=== PATIENT | female | born 1980 | race Caucasian/White ===

== ENCOUNTER 2017-08-06 01:28 | Emergency (ER) | payer OTHER ==
[2017-08-06 01:39] VITALS: BMI 20.5
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
[2017-08-06 03:25] LABS: BASOPHILS % (AUTO) 0.3 % (0.2-1.0); EOSINOPHILS # (AUTO) 0.1 x10^3/uL (0.0-0.2); EOSINOPHILS % (AUTO) 0.6 % (0.9-2.9); HEMATOCRIT 35.8 % (36.0-47.0); HEMOGLOBIN 12.3 g/dL (12.0-16.0); LYMPHOCYTES # (AUTO) 0.9 X10^3/uL (1.3-2.9); LYMPHOCYTES % (AUTO) 8.4 % (21.0-51.0); MEAN CORPUSCULAR HEMOGLOBIN 30.8 pg (27.0-34.0); MEAN CORPUSCULAR HGB CONC 34.4 g/dL (33.0-35.0); MEAN CORPUSCULAR VOLUME 89.4 fL (80.0-100.0); MEAN PLATELET VOLUME 7.2 fL (7.4-11.0); MONOCYTES # (AUTO) 0.6 x10^3/uL (0.3-0.8); MONOCYTES % (AUTO) 5.4 % (0.0-13.0); NEUTROPHILS # (AUTO) 9.4 x10^3/uL (2.2-4.8); NEUTROPHILS % (AUTO) 85.3 % (42.0-75.0); PLATELET COUNT 215 X10^3/uL (150.0-450.0); RED CELL DISTRIBUTION WIDTH 11.9 % (11.6-16.5)
[2017-08-06 03:40] LABS: ALANINE AMINOTRANSFERASE 24 Units/L (12-78); ALBUMIN 3.2 g/dL (3.4-5.0); ALKALINE PHOSPHATASE 69 Units/L (46-116); ASPARTATE AMINO TRANSFERASE 25 Units/L (15-37); BLOOD UREA NITROGEN 14 mg/dL (7-18); CALCIUM 8.2 mg/dL (8.5-10.1); CARBON DIOXIDE 30.3 mmol/L (21-32); CHLORIDE 106 mmol/L (98-107); COR CA(FOR HYPOALB) 8.8 mg/dL (8.5-10.1); SODIUM 142 mmol/L (136-145); TOTAL PROTEIN 6.3 g/dL (6.4-8.2); eGFR BLACK RACES > 60 (>60); eGFR NON BLACK RACES > 60 (>60)
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
[2017-08-06 05:06] VITALS: BP 112/58
[2017-08-06] MEDS ORDERED: PERCOCET TAB 5/325 MG PO ONE (05:15)
[2017-08-06] MEDS ORDERED: PERCOCET TAB 5/325 MG ONE (05:18)
== END 2017-08-06 07:36 | disposition home or self-care (01) ==
LOC: ER 01:28
DX: Z04.3 Encounter for examination and observation following other accident (principal); S22.080A Wedge compression fracture of T11-T12 vertebra, initial encounter for closed fracture; S22.030A Wedge compression fracture of third thoracic vertebra, initial encounter for closed fracture; V49.9XXA Car occupant (driver) (passenger) injured in unspecified traffic accident, initial encounter
CPT/HCPCS: 36415; 70450; 71010; 72125; 72128; 72131; 73030; 74176; 80053; 85025; 99283

== ENCOUNTER 2018-01-04 18:43 | Emergency (ER) | payer OTHER ==
[2018-01-04 18:51] VITALS: BP 98/64; BMI 19.8
[2018-01-04] MEDS ORDERED: ZOFRAN INJ 4 MG VIAL IVP ONE (19:11)
--- NOTE | 2018-01-04 19:12 | DR.GENAD ---
HPI - PCP Primary Care Physician: mouna mccallum - Complaint/Symptoms Chief Complaint Doctors Comments: Patient presents with complaint of left flank pain onset this moring. Has a history of stones. Pain level is 8/10, sharp. Denies fever. She denies allergies. Chief Complaint:: pt c/o lt flank pain and nausea and vomiting pt states" i had a kidney stone last year i just need to lay down i'm hurting" - Source History Provided: Patient - Mode of Arrival Mode of Arrival: Ambulatory - Timing Onset of Chief Complaint: 01/04/18 PMH - PMH Past Medical History: Yes Past Medical History: Kidney Stones Past Surgical History: Yes Surgical History: , Hysterectomy - Family History History of Family Medical Conditions: Yes Family Medical History: Diabetes Mellitus - Social History Does patient currently use any type of tobacco product: No Have you used tobacco products in the last 12 months: No Type of Tobacco Use: None Do you use any recreational Drugs:: No Lives With: Family Lives Where: Home - infectious screening In the last 2 months have you had wt loss of >10#?: NO Have you had fever, night sweats or hemotysis?: No Have you traveled outside the country in the last 6 months?: No Isolation: Standard ROS - Review of Systems Eyes: No Symptoms Reported ENTM: No Symptoms Reported Respiratoy: No Symptoms Reported Cardiovascular: No Symptoms Reported Gastrointestinal/Abdominal: No Symptoms Reported Genitourinary: No Symptoms Reported Neurological: No Symptoms Reported Musculoskeletal: No Symptoms Reported Integumentary: No Symptoms Reported Hematologic/Lymphatic: No Symptoms Reported Endocrine: No Symptoms Reported Psychiatric: No Symptoms Reported All Other Systems: Reviewed and Negative PE - Vital Signs Vitals: Temperature 97.4 F Pulse Rate 104 Respiratory Rate 18 Blood Pressure [Left Arm] 112/58 Blood Pressure 98/64 O2 Sat by Pulse Oximetry 100 - General General Appearance: Alert, In No Apparent Distress - Head Head Exam: Normal Inspection, Atraumatic - Eyes Eye exam: Normal Appearance, PERRL, EOMI - ENT ENT Exam: Normal Exam External Ear Exam: Normal External Inspection TM/Canal Exam: Bilateral Normal Nose Exam: Normal Nose Exam Mouth Exam: Normal Inspection Throat Exam: Normal Inspection - Neck Neck Exam: Normal Inspection, Full ROM - Chest Chest Inspection: Normal Inspection - Respiratory Respiratory Exam: Normal Lung Sounds Bilat, Accessory Muscle Use Respiratory Exam: Bilateral Clear to Auscultation - Cardiovascular Cardiovascular Exam: Regular Rate, Normal Rhythm - Abdominal Exam Abdominal Exam: Normal Inspection Abdominal Tenderness: Suprapubic - Extremities Extremities Exam: Normal Inspection, Full ROM - Back Back Exam: Normal Inspection, Full ROM - Neurologic Neurological Exam: Alert, Oriented X3, CN II-XII Intact - Psychiatric Psychiatric Exam: Normal Affect - Skin Skin Exam: Warm, Dry, Intact Course - Reevaluation 1st: Improved ROR - Labs Reviewed Laboratory Results Reviewed?: Yes (Urine: +1 leuk; 20-30 RBCs, 5-10WBC) Laboratory: Specimen Type Clean catch urine 01/04/18 20:20 Urine Color Yellow (YELLOW) 01/04/18 20:20 Urine Appearance Cloudy (CLEAR) 01/04/18 20:20 Urine pH 5.0 (5.0 - 8.0) 01/04/18 20:20 Ur Specific [place] 1.025 (1.000-1.030) 01/04/18 20:20 Urine Protein 2+ (NEGATIVE) 01/04/18 20:20 Urine Glucose (UA) Negative (NEGATIVE) 01/04/18 20:20 Urine Ketones 1+ (NEGATIVE) 01/04/18 20:20 Urine Occult Blood 5+ (NEGATIVE) 01/04/18 20:20 Urine Nitrite Negative (NEGATIVE) 01/04/18 20:20 Urine Bilirubin 1+ (NEGATIVE) 01/04/18 20:20 Urine Urobilinogen 1+ (NORMAL) 01/04/18 20:20 Ur Leukocyte Esterase 1+ (NEGATIVE) 01/04/18 20:20 Urine RBC 20-30 /HPF (NONE SEEN) 01/04/18 20:20 Urine WBC 5-10 /HPF (NONE SEEN) 01/04/18 20:20 Ur Squamous Epith Cells Rare /HPF (NEGATIVE) 01/04/18 20:20 Amorphous Sediment 1+ /HPF (NEGATIVE) 01/04/18 20:20 Urine Bacteria 2+ /HPF (NEGATIVE) 01/04/18 20:20 Urine Mucus Few /HPF (NEGATIVE) 01/04/18 20:20 Ur Culture Indicated? Yes/culture set up 01/04/18 20:20 - XRAY XRAY Interpreted by: Radiologist (CT ABd/Pel w/o: There is left sided hydroureteronephrosis proximal to a 5mm calculus located at or near the left ureterovesical junction. No left renal calculi are identified. No intraperitoneal or retroperitoneal lymphadenopathy of significance is identified. There are no findings suggestive of diverticulitis or colitis. The appendix is normal. Examinatin of the pelvic demonstrated no evidence for pelvic masses, pelvic fluid, or pelvic lymphadenopathy. No intrisic bladder abnormality is identified. No lytic or blastic skeletal lesions are identified. Impression: 5mm obstructing distal left ureteral calculus located at or near the left ureterovesical junction.) - Diagnosis Discharge Problem: Left sided hydroureteronephrosis, UTI (urinary tract infection) - Discharge Plan Condition: Stable - Follow ups/Referrals Follow ups/Referrals: AWA MCCALLUM [Primary Care Provider] - 3 days - Instructions
[2018-01-04] MEDS ORDERED: NS 1000 ML 1,000 ML ONE (19:16)
[2018-01-04] MEDS ORDERED: TORADOL 30 MG VIAL IVP ONE (19:16)
[2018-01-04] MEDS ORDERED: ZOFRAN INJ 4 MG VIAL ONE (19:16)
[2018-01-04] MEDS ORDERED: TORADOL 30 MG VIAL ONE (19:18)
[2018-01-04] MEDS ORDERED: NS 1000 ML 1,000 ML IV SCH (20:00)
[2018-01-04 20:45] LABS: BILIRUBIN,URINE 1+ (NEGATIVE); BLOOD/HEMOGLOBIN,URINE 5+ (NEGATIVE); GLUCOSE, URINE NEGATIVE (NEGATIVE); KETONES,URINE 1+ (NEGATIVE); LEUKOCYTE ESTERASE ,URINE 1+ (NEGATIVE); NITRITES,URINE NEGATIVE (NEGATIVE); PROTEIN,URINE 2+ (NEGATIVE); UROBILINOGEN,URINE 1+ (NORMAL)
[2018-01-04 20:53] LABS: APPEARANCE,URINE CLOUDY (CLEAR); BACTERIA,URINE 2+ /HPF (NEGATIVE); COLOR,URINE YELLOW (YELLOW); RBC,URINE 20-30 /HPF (NONE SEEN); SQUAMOUS EPITHELIAL CELL,UR RARE /HPF (NEGATIVE)
[2018-01-04 20:54] LABS: AMORPHOUS SEDIMENT,UR 1+ /HPF (NEGATIVE); MUCUS,URINE FEW /HPF (NEGATIVE)
[2018-01-04] MEDS ORDERED: ANCEF 1 GM IV PREMIX* 1 GM/50 ML BAG IV ONE (21:14)
--- NOTE | 2018-01-04 21:50 | CT ---
HISTORY: Left flank pain, hematuria Study: CT abdomen pelvis without contrast Comparison: 08/06/2017 Technique: Axial noncontrast images with coronal and sagittal reformats. Dose reduction procedures we re used with mA/kv adjusted for body size. Findings: The lung bases are clear. The liver, spleen, adrenal glands, and pancreas are within normal limits to the limitations of an unenhanced examination. No opaque stones are visible within the gallbladder. T he right kidney is unobstructed and without stones. No right ureteral calculus is identified. There i s left-sided hydroureteronephrosis proximal to a 5 mm calculus located at or near the left ureteroves ical junction. No left renal calculi are identified. No intraperitoneal or retroperitoneal lymphadeno [place] of significance is identified. There are no findings suggestive of diverticulitis or colitis. T he appendix is normal. Examination of the pelvis demonstrated no evidence for pelvic masses, pelvic f luid, or pelvic lymphadenopathy. No intrinsic bladder abnormality is identified. No lytic or blastic skeletal lesions are identified. IMPRESSION: 5 mm obstructing distal left ureteral calculus located at or near the left ureterovesical junction Reported By:
[2018-01-04] MEDS ORDERED: ANCEF VIAL 1 GM 1 GM in NS 100 ML IV + SPIKE MINIBAG* 100 ML IV SCH (22:00)
== END 2018-01-04 22:23 | disposition home or self-care (01) ==
LOC: ER 18:56
DX: N13.30 Unspecified hydronephrosis (principal); N39.0 Urinary tract infection, site not specified; R10.84 Generalized abdominal pain
CPT/HCPCS: 74176; 81001; 87086; 96365; 96367; 96374; 96375; 99283; A4222; J0690; J1885; J2405